=== PATIENT | female | born 1945 | race Asian ===

== ENCOUNTER 2021-10-27 06:42 | Day surgery (SDC) | payer MEDICARE, OTHER ==
[~2021-10-27] VITALS: Ht 157.5 cm; Wt 54.5 kg
[~2021-10-27 06:42] MED LIST: LISI-893 PO; METF-1211 PO; SODIUM CHLORIDE 0.9% 1,000 ML IV ONE; [UNRECOGNIZED DRUG - CODE] PO
[2021-10-27] MEDS ORDERED: PROPOFOL 1% 20 ML VIAL IVP ONE (06:43)
[2021-10-27 07:24] LABS: COVID AG,FIA SOURCE NASOPHARYNGEAL
[2021-10-27 07:41] LABS: GLUCOMETER DEV NAME(LOC) SDS.; GLUCOSE,POINT OF CARE 111 MG/DL (70-110)
[2021-10-27] MEDS ORDERED: PRAV40TA4 PO (10:13)
[2021-10-27] MEDS ORDERED: LOSA-382 PO (10:13)
== END 2021-10-27 10:40 | disposition home or self-care (01) ==
LOC: SURGERY 06:42
PROVIDERS: ATTEND Internal Medicine Gastroenterology
DX: K63.5 Polyp of colon (principal); K64.0 First degree hemorrhoids; K21.9 Gastro-esophageal reflux disease without esophagitis; E78.5 Hyperlipidemia, unspecified; I10 Essential (primary) hypertension; E11.9 Type 2 diabetes mellitus without complications; Z98.890 Other specified postprocedural states; Z79.899 Other long term (current) drug therapy
CPT/HCPCS: 45380; 82962; 87426; C9803; J2704